=== PATIENT | male | born 1950 | race Caucasian/White ===

== ENCOUNTER 2021-09-08 14:14 | Outpatient (REF) | payer MEDICARE, MEDICAID, SELFPAY ==
--- NOTE | ~2021-09-08 | CT_ITS ---
EXAMINATION: CT ABDOMEN AND PELVIS WITH CONTRAST CLINICAL INFORMATION: Bony metastatic disease. COMPARISON: None TECHNIQUE: Multidetector volumetric images were obtained from the superior aspect of the liver through the pubic symphysis following administration 85 mL of Omnipaque 350 intravenous contrast. Sagittal and coronal reformatted images were obtained on the technologist's workstation. Oral contrast: Given. This CT examination was performed using dose optimization techniques as appropriate, variously including the following: *Automated exposure control *Adjustment of mA and/or kV according to patient size (this includes techniques or standardized protocols for targeted exams where dose is matched to indication/reason for exam; i.e. extremities or head) *Use of iterative reconstruction technique DLP: 598 mGy-cm FINDINGS: LUNG BASES: Some pleural nodularity and thickening but no parenchymal lesion. Basilar atelectasis on the right. LIVER, GALLBLADDER, AND BILIARY TREE: The liver is normal in size, shape, and attenuation. No focal hepatic lesion or biliary ductal dilatation is present. The gallbladder is unremarkable with no evidence of radiopaque gallstones, gallbladder wall thickening, or obvious pericholecystic inflammatory changes. PANCREAS: Unremarkable. SPLEEN: Unremarkable. ADRENAL GLANDS: Unremarkable. KIDNEYS AND URETERS: Atrophic left kidney. Some scattered areas of low attenuation in the kidneys may represent evolving cystic change. Scarring superior right kidney likely. BLADDER: Unremarkable. GASTROINTESTINAL TRACT: The bowel pattern is nonobstructing. ABDOMINAL WALL: No significant hernia is appreciated. LYMPH NODES: Normal. VASCULAR: Unremarkable. PELVIC VISCERA: The prostate is bulbous extending into the region of the inferior aspect of the bladder. There is an area of hyperdensity or possibly enhancement on the right side of the prostate. The prostate is prominent. This area of possible enhancement measures 2.4 x 1.5 cm. Calcifications are also seen within the prostate. OSSEOUS STRUCTURES: Indeed, the skeleton is abnormal. Dense sclerosis at L4 with focal sclerotic lesions involving S1, L5, L3, L2, L1, D12, and several thoracic vertebrae which are visualized. Also spinous process at L5. Probable sclerotic lesion of several ribs right and left. Possible lucent bony lesion at D11 on the right. Dense sclerosis in the left iliac bone and diffuse areas of sclerotic change in the visualized pelvic bones, left greater than right. Significant density within the left femoral head/femoral neck. This may be a fracture concern. Asymmetric soft tissue in the obturator region may be reflective of bony metastatic disease. CT/CT abdomen pelvis w con IMPRESSION: This exam is abnormal. Diffuse areas of sclerosis throughout the bones consistent with metastatic disease. Heterogeneous appearance to the prostate with some possible enhancement on the right side. Recommend prostate MRI for full evaluation. Enlargement of the left obturator region may reflect extension of adjacent bony metastatic disease, but soft tissue lesion cannot be excluded here. As described, dense sclerotic change in the left femoral neck may be a fracture risk. Atrophic left kidney. Pleural thickening/nodularity may be chronic, but underlying pleural metastatic disease cannot be excluded. Fleischner guidelines were followed.
[2021-09-08] MEDS: iohexoL 350 MG/ML 100 ML INFUS..BTL IV (18:08)
== END 2021-09-08 14:15 | disposition home or self-care (01) ==
LOC: HO.CT 14:14
PROVIDERS: Visit Provider Family Medicine
DX: C79.51 Secondary malignant neoplasm of bone (principal); N26.1 Atrophy of kidney (terminal)
CPT/HCPCS: 74177; Q9967